=== PATIENT | female | born 2000 | race American Indian/Alaskan Native ===

== ENCOUNTER 2024-11-06 15:33 | Inpatient (IN) | payer OTHER ==
[~2024-11-06] VITALS: Ht 154.9 cm; Wt 59.0 kg
[2024-11-06 16:02] VITALS: O2SAT 100
[2024-11-06 16:48] LABS: HEMATOCRIT 40.8 % (36.0-45.00); HEMOGLOBIN 13.3 g/dL (12.0-15.00); MEAN CELL VOLUME 87.3 fL (80.00-100.00); MEAN CORPUSCULAR HEMOGLOBIN 28.4 pg (27.00-32.0); MEAN CORPUSCULAR HGB CONC 32.5 g/dl (32.0-36.0); PLATELET COUNT 321 K/uL (150-450); RED BLOOD COUNT 4.67 M/uL (4.00-6.00); RED CELL DISTRIBUTION WIDTH 14.1 % (11.5-14.5)
[2024-11-06 17:51] LABS: BILIRUBIN TOTAL 0.27 mg/dL (0.3-1.2); CALCIUM 9.4 mg/dL (8.5-10.1); CREATININE SERUM 0.65 mg/dL (0.55-1.02); GFR 110.18; GLOBULINA 3.6 G/DL (2.4-3.5); POTASSIUM 4.4 mEq/L (3.5-5.1); TOTAL PROTEIN 7.6 gm/dL (6.4-8.2)
[2024-11-06 18:03] LABS: PH,URINE 5.5 (5.0-8.0); URINE APPEARANCE Clear; URINE BILIRRUBIN Negative (NEGATIVE); URINE BLOOD Large; URINE COLOR Yellow; URINE GLUCOSE Negative (NEGATIVE); URINE KETONE Negative (NEGATIVE); URINE LEUKOCYTE Trace; URINE NITRATE Negative; URINE PROTEIN Negative (NEGATIVE); URINE UROBILINOGEN 0.2 E.U./dl
[2024-11-06 18:07] LABS: URINE BACTERIA 970.5 uL (0.0-1933); URINE EPITHELIAL CELLS 20.7 uL (0.0-38.8); URINE RBC 986.7 uL (0.0-20.8); URINE WBC 32.2 uL (0.0-23.2)
[2024-11-06 18:16] LABS: URINE CAST 0.14 uL (0.0-1.40)
[2024-11-06] MEDS ORDERED: 0.9 % SODIUM CHLORIDE 500 ML IV SCH (19:45)
[2024-11-06] MEDS ORDERED: RINGERS SOLUTION,LACTATED 1,000 ML IV SCH (20:00)
[2024-11-06 20:12] LABS: INR 1.03; PARTIAL THROMBOPLASTIN TIME 28.9 SECONDS (22.0-34.0); PROTHROMBIN TIME 11.2 SECONDS (9.0-11.5)
[2024-11-06 22:35] VITALS: BP 133/87
[2024-11-07] VITALS: BP 107/71
[2024-11-07 08:39] LABS: HEMATOCRIT 36.9 % (36.0-45.00); HEMOGLOBIN 12.2 g/dL (12.0-15.00); MEAN CELL VOLUME 87.4 fL (80.00-100.00); MEAN CORPUSCULAR HGB CONC 33.1 g/dl (32.0-36.0); PLATELET COUNT 273 K/uL (150-450); RED BLOOD COUNT 4.23 M/uL (4.00-6.00); RED CELL DISTRIBUTION WIDTH 14.1 % (11.5-14.5)
[2024-11-07 09:00] VITALS: BP 128/77
[2024-11-07 12:03] LABS: RH POSITIVE
== END 2024-11-07 12:25 | disposition home or self-care (01) | DRG 833 ==
LOC: ER 15:36 → SEC-K 20:11 → OB/GYN 21:00
PROVIDERS: Emergency Medicine; ADMIT Obstetrics & Gynecology Maternal & Fetal Medicine; ATTEND Obstetrics & Gynecology Maternal & Fetal Medicine
PROC: BU4CZZZ Ultrasonography of Uterus and Ovaries (ICD-10-PCS; principal; 2024-11-06)
DX: O20.8 Other hemorrhage in early pregnancy (principal)

== ENCOUNTER 2025-09-06 08:00 | Outpatient (CLI) | payer OTHER | END 2025-09-06 08:09 | disposition home or self-care (01) | LOC: SONOGRAMA 08:00 | PROVIDERS: ATTEND Obstetrics & Gynecology Maternal & Fetal Medicine | DX: R10.20 Pelvic and perineal pain unspecified side (principal) ==